=== PATIENT | female | born 1940 | race Caucasian/White ===

== ENCOUNTER 2018-03-08 10:13 | Outpatient (CLI) | payer MEDICARE, OTHER ==
[~2018-03-08] VITALS: Ht 170.2 cm; Wt 99.8 kg
[~2018-03-08 10:13] MED LIST: AMIT-106 PO; ASPI-611 PO; CELE200C PO; CHOL100046 PO; CITA20TA19 PO; CYAN100087 PO; GLUC100017 PO; HYDR12.5 PO; LEVO100T78 PO; LOSA50TA21 PO; METF-436 PO; OMEG-15 PO; TAMO20TA4 PO
[2018-03-08 10:40] LABS: TOTAL HEMOGLOBIN 13.6 G/dl (12.0-16.0)
[2018-03-08] MEDS ORDERED: albuterol 2.5 MG/3 ML nebule NEB PRN (11:05)
== END 2018-03-08 23:59 | disposition home or self-care (01) ==
LOC: RT 10:13
PROVIDERS: ATTEND Internal Medicine Pulmonary Disease
DX: J44.9 Chronic obstructive pulmonary disease, unspecified (principal); R06.09 Other forms of dyspnea; E11.9 Type 2 diabetes mellitus without complications; I10 Essential (primary) hypertension; F17.210 Nicotine dependence, cigarettes, uncomplicated; Z79.899 Other long term (current) drug therapy; Z72.89 Other problems related to lifestyle; Z90.710 Acquired absence of both cervix and uterus; Z98.890 Other specified postprocedural states
CPT/HCPCS: 85018; 94060; 94727; 94729; 94760